=== PATIENT | male | born 1980 | race Caucasian/White ===

== ENCOUNTER 2016-11-17 14:07 | Emergency (ER) | payer OTHER ==
[2016-11-17 14:14] VITALS: BP 120/83; PULSE 68; RESP 18; TEMP 99.3
[2016-11-17] MEDS ORDERED: ORPHENADRINE 30 MG/ML 2 ML VIAL IM STA (14:28)
[2016-11-17] MEDS ORDERED: methylPREDNISolone SOD SUCCI 125 MG/2 ML VIAL IM ONE (14:29)
--- NOTE | 2016-11-17 14:47 | ED ---
Back Pain HPI - General Chief Complaint: Back Pain/Injury Stated Complaint: slip and fall at home Time Seen by Provider: 11/17/16 14:21 Source: patient Limitations: no limitations - History of Present Illness Initial Comments: 36 year old male c/o of lower back pain that occurred last night. Patient does admit to having chronic back pain which she has on Xenia and ran out yesterday. Patient's yesterday he slipped on his son's toy of marbles and caught himself before he fell. Patient states he felt strain in his back right away. Patient states he is just having a lot of discomfort especially with movement and touch. He denies any bowel bladder incontinence or saddle numbness over to The. Patient does do chronic stretches and physical therapy on a regular basis. He denies any new symptoms. No abdominal pain. MD Complaint: back pain - Related Data Previous Rx's Medication Instructions Recorded Baclofen [Lioresal] 10 mg PO TID PRN #30 tablet 08/30/15 Escitalopram [Lexapro] 20 mg PO DAILY #30 tab 12/11/15 HYDROcodone/APAP 10-325MG [[place] 1 tab PO Q6H PRN #30 tab 12/11/15 10-325] Losartan Potassium 100 mg PO DAILY #30 tablet 12/11/15 HYDROcodone/APAP 10-325MG [[place] 1 tab PO Q8HR PRN #16 tab 11/17/16 10-325] methylPREDNISolone [Medrol] 4 mg PO DIRECTED #21 tab.ds.pk 11/17/16 Allergies Allergy/AdvReac Type Severity Reaction Status Date / Time No Known Allergies Allergy Verified 11/17/16 14:14 Review of Systems ROS Statement: Those systems with pertinent positive or pertinent negative responses have been documented in the HPI. ROS Other: All systems not noted in ROS Statement are negative. Constitutional: Denies: fever Respiratory: Denies: cough Endocrine: Denies: fatigue Musculoskeletal: Reports: back pain Neurological: Denies: weakness Past Medical History Past Medical History: Hypertension, Sleep Apnea/CPAP/BIPAP Additional Past Medical History / Comment(s): chronic back pain ptsd sleep apnea adhd History of Any Multi-Drug Resistant Organisms: None Reported Additional Past Surgical History / Comment(s): RIGHT SHOULDER SURGERY Past Psychological History: PTSD Smoking Status: Current every day smoker Past Alcohol Use History: None Reported Past Drug Use History: None Reported General Exam Limitations: no limitations General appearance: alert, in no apparent distress Head exam: Present: atraumatic, normocephalic, normal inspection Eye exam: Present: normal appearance, PERRL, EOMI. Absent: scleral icterus, conjunctival injection, periorbital swelling ENT exam: Present: normal exam, mucous membranes moist Neck exam: Present: normal inspection Respiratory exam: Present: normal lung sounds bilaterally. Absent: respiratory distress, wheezes, rales, rhonchi, stridor Cardiovascular Exam: Present: regular rate, normal rhythm, normal heart sounds. Absent: systolic murmur, diastolic murmur, rubs, gallop, clicks GI/Abdominal exam: Present: soft, normal bowel sounds. Absent: distended, tenderness, guarding, rebound, rigid Back exam: Present: normal inspection, tenderness (bilateral low back area no deformity swelling or bruising noted.), muscle spasm (mild low back) Neurological exam: Present: alert, oriented X3, CN II-XII intact Course Vital Signs 11/17/16 14:12 Temperature 99.3 F Pulse Rate 68 Respiratory 18 Rate Blood Pressure 120/83 O2 Sat by Pulse 98 Oximetry Medical Decision Making - Medical Decision Making discussed with patientthat we will treat his muscle spasms and back strain today with steroids and a refill on his pain pills. Patient doesn't muscle relaxers at home. Patient to continue with heat and stretching along with following family doctor or orthopedic physician. Patient return sooner if any problems Disposition Clinical Impression: Strain of lumbar region Disposition: HOME SELF-CARE Condition: Good Instructions: Acute Low Back Pain (ED) Prescriptions: HYDROcodone/APAP 10-325MG [[place] 10-325] 1 tab PO Q8HR PRN #16 tab PRN Reason: Pain methylPREDNISolone [Medrol] 4 mg PO DIRECTED #21 tab.ds.pk Referrals: Frantz Chavez MD [Primary Care Provider] - 1-2 days Time of Disposition: 14:46
== END 2016-11-17 15:05 | disposition home or self-care (01) ==
LOC: EC 14:07
DX: S39.012A Strain of muscle, fascia and tendon of lower back, initial encounter (principal); Z76.0 Encounter for issue of repeat prescription; F17.200 Nicotine dependence, unspecified, uncomplicated; W01.0XXA Fall on same level from slipping, tripping and stumbling without subsequent striking against object, initial encounter; Y92.009 Unspecified place in unspecified non-institutional (private) residence as the place of occurrence of the external cause
CPT/HCPCS: 99283; 96372 ×2; J2360; J2930

== ENCOUNTER 2020-09-27 16:14 | Emergency (ER) | payer OTHER ==
[2020-09-27 16:24] VITALS: BP 144/88; PULSE 95; RESP 18; TEMP 98.5
[2020-09-27] MEDS ORDERED: CYCLOBENZAPRINE 10 MG TAB PO STA (16:38)
[2020-09-27] MEDS ORDERED: KETOROLAC 15 MG/ML 1 ML VIAL IM STA (16:38)
--- NOTE | 2020-09-27 17:09 | XR ---
EXAMINATION TYPE: XR cervical spine comp DATE OF EXAM: 09/27/2020 CLINICAL HISTORY: pain COMPARISON: NONE TECHNIQUE: Frontal, lateral, oblique, swimmers, and open mouth view of the cervical spine are obtaine d. FINDINGS: The cervical spine is visualized in its entirety from C1 thru the top of T1 level. It is s atisfactory in alignment without evidence of acute fracture or dislocation. The pre-vertebral soft t issue appears within normal limits. Disc spaces are well preserved. The C1-C2 articulation is unremar kable on the open mouth view. The oblique images are within normal limits. IMPRESSION: No acute fracture or dislocation is seen in the cervical spine.ICD 10 NO FRACTURE, INITI AL EVALUATION
--- NOTE | 2020-09-27 17:14 | ED ---
Neck Injury/Pain HPI - General Chief Complaint: Neck Pain/Injury Stated Complaint: Rt Shoulder Pain Time Seen by Provider: 09/27/20 16:26 Source: patient, RN notes reviewed Mode of arrival: ambulatory Limitations: no limitations - History of Present Illness Initial Comments: patient is a 40-year-old male that presents to the emergency department complai geraldo of right sided neck pain with some radicular symptoms down the right arm. He notes that he is getting shooting flashes of pain down the right arm with some muscle spasms. He notes that he does have full range of motion of his right upper extremity and full sensation. He denied any injury or trauma. 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 He did not appear to be in any distress while sitting up during the exam interview. He denied any injury, trauma chest pain shortness of breath headache nausea vomiting diarrhea constipation fever fatigue chills decreased range of motion or sensation in his right upper extremity. - Related Data Previous Rx's Medication Instructions Recorded Baclofen [Lioresal] 10 mg PO TID PRN #30 tablet 08/30/15 Escitalopram [Lexapro] 20 mg PO DAILY #30 tab 12/11/15 HYDROcodone/APAP 10-325MG [[place] 1 tab PO Q6H PRN #30 tab 12/11/15 10-325] Losartan Potassium 100 mg PO DAILY #30 tablet 12/11/15 HYDROcodone/APAP 10-325MG [[place] 1 tab PO Q8HR PRN #16 tab 11/17/16 10-325] methylPREDNISolone [Medrol] 4 mg PO DIRECTED #21 tab.ds.pk 11/17/16 Allergies Allergy/AdvReac Type Severity Reaction Status Date / Time No Known Allergies Allergy Verified 09/27/20 16:24 Review of Systems ROS Statement: Those systems with pertinent positive or pertinent negative responses have been documented in the HPI. ROS Other: All systems not noted in ROS Statement are negative. Past Medical History Past Medical History: Hypertension, Sleep Apnea/CPAP/BIPAP Additional Past Medical History / Comment(s): chronic back pain ptsd sleep apnea adhd History of Any Multi-Drug Resistant Organisms: None Reported Additional Past Surgical History / Comment(s): RIGHT SHOULDER SURGERY Past Psychological History: PTSD Smoking Status: Current every day smoker Past Alcohol Use History: None Reported Past Drug Use History: None Reported General Exam Limitations: no limitations General appearance: alert, in no apparent distress Head exam: Present: atraumatic, normocephalic, normal inspection Eye exam: Present: normal appearance, PERRL, EOMI. Absent: scleral icterus, conjunctival injection, periorbital swelling Neck exam: Present: normal inspection, tenderness (tenderness on the right paraspinal muscles), full ROM. Absent: lymphadenopathy Respiratory exam: Present: normal lung sounds bilaterally. Absent: respiratory distress, wheezes, rales, rhonchi, stridor Cardiovascular Exam: Present: regular rate, normal rhythm, normal heart sounds. Absent: systolic murmur, diastolic murmur, rubs, gallop, clicks Extremities exam: Present: normal inspection, full ROM, normal capillary refill. Absent: tenderness, pedal edema, joint swelling, calf tenderness Right General: Present: normal inspection Shoulder Exam: Present: normal inspection, full ROM Upper Arm exam: Present: normal inspection, full ROM Elbow exam: Present: normal inspection, full ROM Forearm Wrist exam: Present: normal inspection, full ROM Hand Wrist exam: Present: normal inspection, full ROM Neurological exam: Present: alert, oriented X3 Psychiatric exam: Present: normal affect, normal mood Skin exam: Present: warm, dry, intact, normal color. Absent: rash Course Vital Signs 09/27/20 16:21 Temperature 98.5 F Pulse Rate 95 Respiratory 18 Rate Blood Pressure 144/88 O2 Sat by Pulse 98 Oximetry Medical Decision Making - Medical Decision Making 40-year-old male complaining of right-sided neck tenderness with radicular symptoms down the right arm. Cervical spine x-ray, 15 mg of Toradol, 10 mg of Flexeril ordered. Cervical spine x-ray negative for any acute fractures dislocations. case discussed with Dr. Lindo, patient can discharge home with follow-up to primary care. - Radiology Data Radiology results: report reviewed, image reviewed Cervical spine x-ray: No acute fracture or dislocation Disposition Clinical Impression: Strain of neck muscle, Cervical radiculopathy Disposition: HOME SELF-CARE Condition: Stable Instructions (If sedation given, give patient instructions): Cervical Sprain (ED), Cervical Strain (ED) Additional Instructions: Please return to the Emergency Department if symptoms worsen or any other concerns. Follow-up with primary care and orthopedist as needed. Continue take at home medications as prescribed. Avoid any strenuous activity or exercise. Is patient prescribed a controlled substance at d/c from ED?: No Referrals: Idania Villalobos MD [Primary Care Provider] - 1-2 days Tim Hardy MD [STAFF PHYSICIAN] - 1-2 days Time of Disposition: 17:34
== END 2020-09-27 17:53 | disposition home or self-care (01) ==
LOC: EC 16:14
DX: S16.1XXA Strain of muscle, fascia and tendon at neck level, initial encounter (principal); M54.12 Radiculopathy, cervical region; I10 Essential (primary) hypertension; F17.200 Nicotine dependence, unspecified, uncomplicated; Z79.891 Long term (current) use of opiate analgesic; Z79.52 Long term (current) use of systemic steroids; Z79.899 Other long term (current) drug therapy
CPT/HCPCS: 72050; 96372; 99283; J1885

== ENCOUNTER 2020-11-02 13:48 | Emergency (ER) | payer OTHER ==
[2020-11-02 14:09] VITALS: TEMP 98.1
[2020-11-02 16:26] LABS: Amphetamine Screen,Urine Detected (NotDetected); Barbiturate Screen,Urine Not Detected (NotDetected); Benzodiazepines Screen,Urine Not Detected (NotDetected); Cocaine Screen,Urine Not Detected (NotDetected); Methadone Screen, Urine Not Detected (NotDetected); Opiate Screen,Urine Detected (NotDetected); Oxycodone Screen, Urine Detected (NotDetected); Phencyclidine Screen,Urine Not Detected (NotDetected); Tricyclic Antidepressant,Urine Not Detected (NotDetected); Urn Cannabinoid Scrn Detected (NotDetected)
[2020-11-02 16:48] VITALS: BP 150/86; PULSE 89; RESP 16
[2020-11-02] MEDS ORDERED: HYDROcodone/APAP 10-325MG 1 EACH TAB PO ONE (17:31)
--- NOTE | 2020-11-02 17:39 | ED ---
Psych HPI - General Chief Complaint: Psychiatric Symptoms Stated Complaint: suicidal Time Seen by Provider: 11/02/20 14:10 Source: patient, RN notes reviewed Mode of arrival: ambulatory - History of Present Illness Initial Comments: Patient is a 40-year-old male that presents to the emergency department complaining of suicidal ideations. He notes he is a combat has PTSD and that his 23-year-old daughter recently passed in June. He notes that suicidal thoughts creep up on him every so often. He notes he came to the hospital to get evaluated. He notes that [facility]. She denied any other issues or complaints at this time. He was a well-appearing well-hydrated 32-year-old male in no apparent distress or pain. She denied any chest pain shortness breath headache nausea vomiting diarrhea constipation fever fatigue chills homicidal deviations. - Related Data Home Medications Medication Instructions Recorded Confirmed Capsaicin Cream 0.025% 1 applic TOPICAL BID PRN 11/02/20 11/02/20 Diclofenac Sodium Gel [Voltaren 1 applic TOPICAL BID PRN 11/02/20 11/02/20 Gel] Lidocaine 5% Patch [Lidoderm 5% 1 patch TOPICAL DAILY PRN 11/02/20 11/02/20 Patch] Nicotine 2mg Gum 2 mg PO TID PRN 11/02/20 11/02/20 Omeprazole [PriLOSEC] 20 mg PO DAILY 11/02/20 11/02/20 hydroCHLOROthiazide 25 mg PO DAILY 11/02/20 11/02/20 Previous Rx's Medication Instructions Recorded HYDROcodone/APAP 10-325MG [[place] 1 tab PO Q6H PRN #30 tab 12/11/15 10-325] Losartan Potassium 100 mg PO DAILY #30 tablet 12/11/15 Allergies Allergy/AdvReac Type Severity Reaction Status Date / Time No Known Allergies Allergy Verified 11/02/20 16:21 Review of Systems ROS Statement: Those systems with pertinent positive or pertinent negative responses have been documented in the HPI. ROS Other: All systems not noted in ROS Statement are negative. Past Medical History Past Medical History: Hypertension, Sleep Apnea/CPAP/BIPAP Additional Past Medical History / Comment(s): chronic back pain ptsd sleep apnea adhd History of Any Multi-Drug Resistant Organisms: None Reported Past Surgical History: Orthopedic Surgery Additional Past Surgical History / Comment(s): RIGHT SHOULDER SURGERY Past Psychological History: Anxiety, Bipolar, Depression, PTSD Smoking Status: Current every day smoker Past Alcohol Use History: None Reported Past Drug Use History: Marijuana General Exam Limitations: no limitations General appearance: alert, in no apparent distress Head exam: Present: atraumatic, normocephalic, normal inspection Eye exam: Present: normal appearance, PERRL, EOMI. Absent: scleral icterus, conjunctival injection, periorbital swelling Neck exam: Present: normal inspection Respiratory exam: Present: normal lung sounds bilaterally. Absent: respiratory distress, wheezes, rales, rhonchi, stridor Cardiovascular Exam: Present: regular rate, normal rhythm, normal heart sounds. Absent: systolic murmur, diastolic murmur, rubs, gallop, clicks GI/Abdominal exam: Present: soft, normal bowel sounds. Absent: distended, tenderness, guarding, rebound, rigid Extremities exam: Present: normal inspection, full ROM, normal capillary refill. Absent: tenderness, pedal edema, joint swelling, calf tenderness Neurological exam: Present: alert, oriented X3 Psychiatric exam: Present: normal affect, normal mood, suicidal ideation. Absent: homicidal ideation Skin exam: Present: warm, dry, intact, normal color. Absent: rash Course Vital Signs 11/02/20 11/02/20 14:06 16:47 Temperature 98.1 F Pulse Rate 73 89 Respiratory 20 16 Rate Blood Pressure 200/99 150/86 O2 Sat by Pulse 98 99 Oximetry Medical Decision Making - Medical Decision Making 40-year-old male presenting with suicidal ideations. Breath alcohol test, urine drug screen ordered. EPS was made aware and evaluated patient. Patient states that he is no longer suicidal and has thoughts that come and go. He notes that it thoughts return he wants [facility]. Patient noted that he was experiencing moderate pain since he did miss his scheduled pain medication at home. 10 mg of [place] ordered. Urinalysis positive for opiates, oxycodone, amphetamines, marijuana. Patient does take [place] and Adderall home. Case discussed with Dr. Valenzuela, patient can discharge home per his wishes. - Lab Data Lab Results 11/02/20 Range/Units 15:14 Urine Opiates Screen Detected H (NotDetected) Ur Oxycodone Screen Detected H (NotDetected) Urine Methadone Screen Not Detected (NotDetected) Ur Propoxyphene Screen Not Detected (NotDetected) Ur Barbiturates Screen Not Detected (NotDetected) U Tricyclic Antidepress Not Detected (NotDetected) Ur Phencyclidine Scrn Not Detected (NotDetected) Ur Amphetamines Screen Detected H (NotDetected) U Methamphetamines Scrn Detected H (NotDetected) U Benzodiazepines Scrn Not Detected (NotDetected) Urine Cocaine Screen Not Detected (NotDetected) U Marijuana (THC) Screen Detected H (NotDetected) Disposition Clinical Impression: Suicidal ideation Disposition: HOME SELF-CARE Condition: Stable Instructions (If sedation given, give patient instructions): Post Traumatic Stress Disorder (ED) Additional Instructions: Please return to the Emergency Department if symptoms worsen or any other concerns. Follow-up primary care as needed. Continue take at home medications as prescribed. [facility]. Is patient prescribed a controlled substance at d/c from ED?: No Referrals: Idania Villalobos MD [Primary Care Provider] - 1-2 days Time of Disposition: 17:39
== END 2020-11-02 17:55 | disposition home or self-care (01) ==
LOC: EC 13:48
DX: R45.851 Suicidal ideations (principal); F43.10 Post-traumatic stress disorder, unspecified; I10 Essential (primary) hypertension; G89.29 Other chronic pain; F32.9 Major depressive disorder, single episode, unspecified; F41.9 Anxiety disorder, unspecified; F17.200 Nicotine dependence, unspecified, uncomplicated; F12.90 Cannabis use, unspecified, uncomplicated; Z87.828 Personal history of other (healed) physical injury and trauma
CPT/HCPCS: 80306; 82075; 99284

== ENCOUNTER 2021-02-01 15:54 | Emergency (ER) | payer OTHER ==
[2021-02-01 16:54] VITALS: BP 168/94; PULSE 99; RESP 18; TEMP 98.9
--- NOTE | 2021-02-01 17:08 | XR ---
EXAMINATION TYPE: XR hand complete LT DATE OF EXAM: 02/01/2021 COMPARISON: NONE HISTORY: 40 years Male. STUDY INDICATION GIVEN: laceration . TECHNIQUE: 3 radiographs of the left hand IMPRESSION: No acute osseous or articular abnormalities seen. It appears that there is soft tissue swelling along the palmar aspect of the hand which could be holger elated clinically for the location of the laceration.
[2021-02-01] MEDS ORDERED: LIDOCAINE 1% INJ 10MG/ML (20 ML MDV) SQ ONE (17:57)
[2021-02-01] MEDS ORDERED: BACITRACIN OINT 1 EACH PACKET TOPICAL ONE (17:57)
--- NOTE | 2021-02-01 18:20 | ED ---
Wound/Laceration HPI - General Chief Complaint: Wound/Laceration Stated Complaint: Finger Lac Time Seen by Provider: 02/01/21 17:43 Source: patient, RN notes reviewed Mode of arrival: ambulatory Limitations: no limitations - History of Present Illness Initial Comments: Patient is a 40-year-old male presenting to the emergency department with a laceration to the base of his left thumb. Patient states he was using a sharp knife to cut a tow rope when it slipped and he sliced his thumb. He is having little bit of numbness in the left thumb but is able to move it without complication. Bleeding is controlled with bandage. This happened a couple hours before arrival. He is up-to-date with his tetanus. He is not on blood thinners. There are no further complaints. - Related Data Home Medications Medication Instructions Recorded Confirmed Capsaicin Cream 0.025% 1 applic TOPICAL BID PRN 11/02/20 11/02/20 Diclofenac Sodium Gel [Voltaren 1 applic TOPICAL BID PRN 11/02/20 11/02/20 Gel] Lidocaine 5% Patch [Lidoderm 5% 1 patch TOPICAL DAILY PRN 11/02/20 11/02/20 Patch] Nicotine 2mg Gum 2 mg PO TID PRN 11/02/20 11/02/20 Omeprazole [PriLOSEC] 20 mg PO DAILY 11/02/20 11/02/20 hydroCHLOROthiazide 25 mg PO DAILY 11/02/20 11/02/20 Previous Rx's Medication Instructions Recorded HYDROcodone/APAP 10-325MG [[place] 1 tab PO Q6H PRN #30 tab 12/11/15 10-325] Losartan Potassium 100 mg PO DAILY #30 tablet 12/11/15 Allergies Allergy/AdvReac Type Severity Reaction Status Date / Time No Known Allergies Allergy Verified 02/01/21 16:49 Review of Systems ROS Statement: Those systems with pertinent positive or pertinent negative responses have been documented in the HPI. ROS Other: All systems not noted in ROS Statement are negative. Past Medical History Past Medical History: Hypertension, Sleep Apnea/CPAP/BIPAP Additional Past Medical History / Comment(s): chronic back pain ptsd sleep apnea adhd History of Any Multi-Drug Resistant Organisms: None Reported Past Surgical History: Orthopedic Surgery Additional Past Surgical History / Comment(s): RIGHT SHOULDER SURGERY Past Psychological History: Anxiety, Bipolar, Depression, PTSD Smoking Status: Current every day smoker Past Alcohol Use History: None Reported Past Drug Use History: Marijuana General Exam - General Exam Comments Initial Comments: GENERAL: Patient is well-developed and well-nourished. Patient is nontoxic and in no acute distress. HEAD: Atraumatic, normocephalic. EYES: Pupils equal round and reactive to light, extraocular movements intact, sclera anicteric, conjunctiva are normal. Eyelids were unremarkable. LUNGS: Unlabored respirations. Breath sounds clear to auscultation bilaterally and equal. No wheezes rales or rhonchi. HEART: Regular rate and rhythm without murmurs, rubs or gallops. MUSCULOSKELETAL: Patient has full range of motion of his left thumb and left hand. Neurovascular intact. Sensation is intact. Normal extremities with adequate strength and normal range of motion, no pitting or edema. No clubbing or cyanosis. SKIN: Warm, Dry, normal turgor, no rashes. Patient has a 1.5 cm laceration to the base of left thumb, palmar aspect. No active bleeding. Limitations: no limitations Course Vital Signs 02/01/21 16:50 Temperature 98.9 F Pulse Rate 99 Respiratory 18 Rate Blood Pressure 168/94 O2 Sat by Pulse 99 Oximetry Procedures - Laceration Laceration #1 Consent Obtained: verbal consent Indication: laceration Site: hand (Base of the left thumb, palmar aspect.) Size (cm): 0 (1.5cm) Description: linear Depth: simple, single layer Anesthetic Used: lidocaine 1% Anesthesia Technique: local infiltration Amount (mls): 2 Pre-repair: irrigated extensively Type of Sutures: nylon Size of Sutures: 5-0 Number of Sutures: 5 Technique: simple, interrupted Patient Tolerated Procedure: well Medical Decision Making - Medical Decision Making Patient is a 40-year-old male here with a 1.5 cm laceration to the base of his left thumb. He is up-to-date with his tetanus, bleeding is controlled. His wound was cleaned, closed with 5, 5-0 sutures. He tolerated procedure well. He'll have stitches removed in 7-10 days. He is stable for discharge. Disposition Clinical Impression: Laceration of left thumb Disposition: HOME SELF-CARE Condition: Stable Instructions (If sedation given, give patient instructions): Care For Your Stitches (ED) Additional Instructions: Please return to the Emergency Department if symptoms worsen or any other concerns. Keep area clean and dry. Apply ice to the area for swelling control. Keep covered while working. Stitches need to be removed in 7-10 days. Is patient prescribed a controlled substance at d/c from ED?: No Referrals: Idania Villalobos MD [Primary Care Provider] - 1-2 days Time of Disposition: 18:20
== END 2021-02-01 18:30 | disposition home or self-care (01) ==
LOC: EC 15:54
DX: S61.012A Laceration without foreign body of left thumb without damage to nail, initial encounter (principal); I10 Essential (primary) hypertension; F31.9 Bipolar disorder, unspecified; F41.9 Anxiety disorder, unspecified; F17.200 Nicotine dependence, unspecified, uncomplicated; F12.90 Cannabis use, unspecified, uncomplicated; Z79.899 Other long term (current) drug therapy; W26.0XXA Contact with knife, initial encounter
CPT/HCPCS: 73130; 12001; 99283; J2001